=== PATIENT | female | born 2000 | race Caucasian/White ===

== ENCOUNTER 2020-01-19 21:13 | Emergency (ER) | payer OTHER, MEDICAID ==
[~2020-01-19] VITALS: Ht 180.3 cm; Wt 86.2 kg
[2020-01-19] MEDS ORDERED: ENBRACE HR SOF1 EACH PO (21:26)
[2020-01-19] MEDS ORDERED: ASA81BEC PO (21:27)
[2020-01-19 22:09] LABS: INFLUENZA A ANTIGEN Negative (Negative); INFLUENZA B ANTIGEN Negative (Negative)
[2020-01-19 22:27] VITALS: BP 131/82
== END 2020-01-19 22:28 | disposition home or self-care (01) ==
LOC: M.ERS 21:13
PROVIDERS: Nurse Practitioner Family
DX: U07.1 COVID-19 (principal); Z79.899 Other long term (current) drug therapy; Z79.82 Long term (current) use of aspirin